=== PATIENT | male | born 1935 | race Caucasian/White ===

== ENCOUNTER 2016-08-01 12:50 | Emergency (ER) | payer MEDICARE, OTHER ==
[2016-08-01 13:35] LABS: URINE BILIRUBIN NEGATIVE (NEGATIVE); URINE BLOOD NEGATIVE (NEGATIVE); URINE GLUCOSE (UA) NEGATIVE (NEGATIVE); URINE LEUKOCYTE ESTERASE NEGATIVE (NEGATIVE); URINE NITRITE NEGATIVE (NEGATIVE); URINE PROTEIN NEGATIVE (NEGATIVE); URINE UROBILINOGEN NORMAL (0-1 mg/dl)
[2016-08-01 13:36] LABS: URINE APPEARANCE CLEAR; URINE COLOR YELLOW
[2016-08-01 15:02] LABS: ABSOLUTE NEUTROPHIL COUNT 11.8 K/mm3 (1.8-7.7); BASO % 0.2 % (0.2-1.0); EOS % 0.3 % (0.9-2.9); HEMATOCRIT 40.5 % (32.0-52.0); HEMOGLOBIN 13.4 gm/l (14.0-18.0); IMM NEUT # 0.1 K/mm3 (0-0.2); IMM NEUT% 0.4 % (0-1); LYMPH # 0.4 (1.0-4.8); LYMPH % 2.9 % (15-45); MEAN CELL VOLUME 99.8 fl (80.0-94.0); MEAN CORPUSCULAR HGB CONC 33.1 g/dl (33.0-37.0); MEAN PLATELET VOLUME 10.6 fl (7.4-10.4); MONO # 1.3 (0.0-0.8); MONO % 9.3 % (4-12); NEUT % 86.9 % (43-75); PLATELET COUNT 216 K/mm3 (130-400); RED CELL DISTRIBUTION WIDTH 13.1 % (11.5-14.5)
[2016-08-01 15:40] LABS: ALB/GLOB RATIO 1.3 (>1.0); ALBUMIN 4.4 gm/dL (3.5-5.7); CALCIUM 9.9 mg/dL (8.6-10.3)
--- NOTE | 2016-08-01 16:01 | RAD ---
Exam: Two-view chest COMPARISON: 04/10/2015 INDICATION: CHF, flulike symptoms and chills. FINDINGS: PA and lateral views of the chest were obtained. Cardiac silhouette is within normal limits. Lungs are normally inflated. There is no focal airspace disease or pleural effusion. Left shoulder arthroplasty is appreciated. IMPRESSION: No acute pulmonary process.
[2016-08-01] MEDS ORDERED: LEVOFLOXACIN 500 MG/D5W 100 ML 100 ML IV ONE (16:47)
== END 2016-08-01 18:23 | disposition home or self-care (01) ==
LOC: ED 12:50
DX: R53.1 Weakness (principal); R68.83 Chills (without fever); I11.0 Hypertensive heart disease with heart failure; I50.9 Heart failure, unspecified